=== PATIENT | female | born 1970 | race Two or more races ===

== ENCOUNTER 2019-01-06 00:12 | Inpatient (IN) | payer BC, MEDICAID ==
[~2019-01-06] VITALS: Ht 165.1 cm; Wt 69.4 kg
[2019-01-06] MEDS ORDERED: IV NS 0.9% 1,000 ML BAG IV ONE ×3 (00:30→03:00)
[2019-01-06 00:39] LABS: BASOPHILS # (AUTO) 0.1 /CMM (0.0-0.2); BASOPHILS % (AUTO) 0.4 % (0.0-2.0); HEMATOCRIT 41 % (33-45); HEMOGLOBIN 13.1 g/dL (11.5-14.8); LYMPHOCYTES # (AUTO) 0.6 /CMM (0.8-4.8); LYMPHOCYTES % (AUTO) 3.4 % (20.0-44.0); MEAN CORPUSCULAR HGB CONC 32 g/dl (31.0-36.0); MEAN CORPUSCULAR VOLUME 91 fL (82-100); MONOCYTES # (AUTO) 0.6 /CMM (0.1-1.30); MONOCYTES % (AUTO) 3.4 % (2.0-12.0); NEUTROPHILS # (AUTO) 15.4 /CMM (1.8-8.9); NEUTROPHILS % (AUTO) 92.8 % (43.0-81.0); PLATELET COUNT (AUTO) 152 /CMM (150-450); RED BLOOD CELL COUNT(AUTO) 4.45 MIL/uL (4.0-5.2); WHITE BLOOD COUNT (AUTO) 16.6 K/uL (4.3-11.0)
[2019-01-06 00:45] LABS: CALCIUM, SERUM 7.4 mg/dL (8.5-10.1); CARBON DIOXIDE 25 mmol/L (21-32); CHLORIDE 105 mmol/L (98-107); CREATININE 0.9 mg/dL (0.6-1.3); GLUCOSE 125 mg/dL (74-106); POTASSIUM 3.8 mmol/L (3.5-5.1); SODIUM SERUM 139 mmol/L (136-145); UREA NITROGEN, BLOOD 16 mg/dL (7-18)
[2019-01-06 00:51] LABS: ALANINE AMINOTRANSFERASE 49 U/L (12-78); ALBUMIN 3.2 g/dL (3.4-5.0); ALKALINE PHOSPHATASE 78 U/L (46-116); ASPARTATE AMINOTRANSFERASE 29 U/L (15-37); BILIRUBIN,DIRECT 0.1 mg/dL (0.0-0.2); BILIRUBIN,TOTAL 0.3 mg/dL (0.2-1.0); LIPASE 136 U/L (73-393); TOTAL PROTEIN, SERUM 6.8 g/dL (6.4-8.2)
[2019-01-06] MEDS ORDERED: FENTANYL PF 100MCG/2ML AMPUL IV ONE (03:00)
[2019-01-06] MEDS ORDERED: FENTANYL PF 100MCG/2ML AMPUL ONE (03:01)
[2019-01-06 03:52] LABS: APPEARANCE,URINE CLEAR (CLEAR); BILIRUBIN,URINE NEGATIVE (NEGATIVE); BLOOD, URINE 1+ Ery/uL (NEGATIVE); COLOR,URINE YELLOW (YELLOW); KETONES,URINE TRACE (NEGATIVE); LEUKOCYTE ESTERASE ,URINE NEGATIVE (NEGATIVE); NITRITE, URINE NEGATIVE (NEGATIVE); PROTEIN,URINE NEGATIVE (NEGATIVE); UGLUCOSE NEGATIVE (NEGATIVE); UROBILINOGEN,URINE 0.2 EU/dL (0.2)
[2019-01-06 04:02] LABS: BACTERIA,URINE Few /HPF (None Seen); SQUAMOUS EPITHELIAL CELL,UR Few /HPF (None Seen)
[2019-01-06 04:03] LABS: YEAST,URINE Few /HPF (None Seen)
[2019-01-06] MEDS ORDERED: CEFAZOLIN 1 GM in IV D5W 50 ML IV ONE (05:00)
[2019-01-06] MEDS ORDERED: VANCOMYCIN 1 GM in IV D5W 250 ML IV ONE (05:30)
[2019-01-06] MEDS ORDERED: PIPERACILLIN /TAZOBACTAM 3.375 G in IV D5W 50 ML IV ONE (05:30)
[2019-01-06] MEDS ORDERED: VANCOMYCIN 1 GM VIAL ONE (05:49)
[2019-01-06] MEDS ORDERED: Z GUARD REMEDY 2 OZ OINT TP PRN (06:00)
[2019-01-06] MEDS ORDERED: ZOLPIDEM TARTRATE 5 MG TABLET PO PRN (06:00)
[2019-01-06] MEDS ORDERED: ONDANSETRON HCL/PF 4 MG/2 ML VIAL IVP PRN (06:00)
[2019-01-06] MEDS ORDERED: MAG HYDROX/AL HYDROX/SIMETH 30 ML UDC PO PRN (06:00)
[2019-01-06] MEDS ORDERED: ACETAMINOPHEN 325 MG TABLET PO PRN (06:00)
[2019-01-06] MEDS ORDERED: MAGNESIUM HYDROXIDE 30 ML UDC PO PRN (06:00)
[2019-01-06] MEDS: MORPHINE SULFATE INJ 2 MG/ML DISP.SYRIN IV PRN ×2 (06:34→13:47)
[2019-01-06 06:42] VITALS: BP 116/65
[2019-01-06 08:00] VITALS: BP 110/66
[2019-01-06] MEDS: IV NS 0.9% 1,000 ML IV PRN ×2 (08:01→17:29)
[2019-01-06] MEDS: FLUCONAZOLE (100 MG) 100 MG TABLET PO SCH (08:11)
[2019-01-06] MEDS: CEFTRIAXONE 1 G in IV D5W 50 ML IV SCH (08:11)
[2019-01-06] MEDS: PANTOPRAZOLE 40 MG TABLET.DR PO SCH (08:11)
[2019-01-06] MEDS ORDERED: PANTOPRAZOLE 40 MG VIAL IV SCH (09:00)
[2019-01-06] MEDS: METRONIDAZOLE 500MG/ NS 100ML 500 MG in PREMIX 1 EA IV SCH ×3 (09:40→22:25)
[2019-01-06] MEDS: HYDROCODONE/APAP 5/325MG 1 EACH TABLET PO PRN ×2 (09:57→17:27)
[2019-01-06] MEDS ORDERED: FEE PK DOSING 1 MIN EA MC ONE (13:53)
[2019-01-06 16:00] VITALS: BP_SYST 110; BP_SYST 115; BP_DIAS 66; BP_DIAS 69
[2019-01-06] MEDS: VANCOMYCIN 1 GM in IV D5W 250 ML IV SCH (17:26)
[2019-01-06 20:00] VITALS: BP 105/68
[2019-01-07] VITALS: BP 96/52
[2019-01-07] MEDS: HYDROCODONE/APAP 5/325MG 1 EACH TABLET PO PRN ×2 (00:50→20:38)
[2019-01-07 04:00] VITALS: BP 96/60
[2019-01-07] MEDS: IV NS 0.9% 1,000 ML IV PRN ×2 (05:18→18:54)
[2019-01-07] MEDS: CEFTRIAXONE 1 G in IV D5W 50 ML IV SCH (05:30)
[2019-01-07] MEDS: METRONIDAZOLE 500MG/ NS 100ML 500 MG in PREMIX 1 EA IV SCH ×3 (06:04→21:45)
[2019-01-07] MEDS: VANCOMYCIN 1 GM in IV D5W 250 ML IV SCH (06:45)
[2019-01-07 07:11] LABS: BASOPHILS % (AUTO) 0.5 % (0.0-2.0); EOSINOPHILS % (AUTO) 4.1 % (0.0-6.0); HEMATOCRIT 32 % (33-45); HEMOGLOBIN 10.9 g/dL (11.5-14.8); LYMPHOCYTES # (AUTO) 1.3 /CMM (0.8-4.8); MEAN CORPUSCULAR HGB CONC 34 g/dl (31.0-36.0); MEAN CORPUSCULAR VOLUME 90 fL (82-100); MONOCYTES # (AUTO) 0.7 /CMM (0.1-1.30); MONOCYTES % (AUTO) 6.9 % (2.0-12.0); NEUTROPHILS # (AUTO) 7.5 /CMM (1.8-8.9); NEUTROPHILS % (AUTO) 75.5 % (43.0-81.0); PLATELET COUNT (AUTO) 114 /CMM (150-450); RED BLOOD CELL COUNT(AUTO) 3.55 MIL/uL (4.0-5.2); WHITE BLOOD COUNT (AUTO) 9.9 K/uL (4.3-11.0)
[2019-01-07 07:23] LABS: CALCIUM, SERUM 7.2 mg/dL (8.5-10.1); CREATININE 0.5 mg/dL (0.6-1.3); MAGNESIUM 1.7 mg/dL (1.8-2.4); PHOSPHORUS 2.2 mg/dL (2.5-4.9); THYROID STIMULATING HORMONE 2.125 uIU/mL (0.358-3.74)
[2019-01-07 07:33] LABS: POTASSIUM 2.8 mmol/L (3.5-5.1)
[2019-01-07 08:00] VITALS: BP 90/46
[2019-01-07] MEDS: FLUCONAZOLE (100 MG) 100 MG TABLET PO SCH (08:04)
[2019-01-07] MEDS: PANTOPRAZOLE 40 MG TABLET.DR PO SCH (08:04)
[2019-01-07] MEDS: Magnesium 1GM/D5W 100ML PREMIX 100 ML IV SCH ×2 (10:13→11:22)
[2019-01-07] MEDS: POTASSIUM CHLORIDE 20 MEQ TAB.PRT.SR PO SCH ×3 (10:13→12:00)
[2019-01-07] MEDS ORDERED: NEUTRA PHOS 1 POWD.PACKET PO ONE (11:00)
[2019-01-07] MEDS ORDERED: POTASSIUM CHLORIDE 20 MEQ TAB.PRT.SR PO ONE (13:00)
[2019-01-07 16:00] VITALS: BP 92/59
[2019-01-07] MEDS: VANCOMYCIN 1.25 GM in IV D5W 500 ML IV SCH (19:57)
[2019-01-07 20:00] VITALS: BP 91/57
[2019-01-08] VITALS (8 sets, daily range): BP systolic 85–98; BP diastolic 46–62
[2019-01-08] MEDS: IV NS 0.9% 1,000 ML IV PRN ×2 (04:23→18:46)
[2019-01-08] MEDS: CEFTRIAXONE 1 G in IV D5W 50 ML IV SCH (05:14)
[2019-01-08] MEDS: HYDROCODONE/APAP 5/325MG 1 EACH TABLET PO PRN ×2 (05:22→10:55)
[2019-01-08] MEDS: METRONIDAZOLE 500MG/ NS 100ML 500 MG in PREMIX 1 EA IV SCH ×3 (05:22→23:21)
[2019-01-08 07:23] LABS: CALCIUM, SERUM 7.3 mg/dL (8.5-10.1); CREATININE 0.5 mg/dL (0.6-1.3); PHOSPHORUS 2.6 mg/dL (2.5-4.9); POTASSIUM 3.4 mmol/L (3.5-5.1)
[2019-01-08] MEDS: VANCOMYCIN 1.25 GM in IV D5W 500 ML IV SCH (07:55)
[2019-01-08] MEDS: PANTOPRAZOLE 40 MG TABLET.DR PO SCH (07:55)
[2019-01-08] MEDS ORDERED: POTASSIUM CHLORIDE 20 MEQ TAB.PRT.SR PO SCH (11:30)
[2019-01-08] MEDS ORDERED: KETOROLAC TROMETHAMINE INJ 30 MG/ML VIAL IM PRN (11:30)
[2019-01-08] MEDS: ACETAMINOPHEN 325 MG TABLET PO SCH ×2 (12:42→18:47)
[2019-01-08] MEDS: KETOROLAC TROMETHAMINE INJ 30 MG/ML VIAL IV PRN (14:37)
[2019-01-09] MEDS: ACETAMINOPHEN 325 MG TABLET PO SCH ×4 (01:19→17:09)
[2019-01-09] MEDS: KETOROLAC TROMETHAMINE INJ 30 MG/ML VIAL IV PRN (05:13)
[2019-01-09] MEDS: CEFTRIAXONE 1 G in IV D5W 50 ML IV SCH (05:13)
[2019-01-09] MEDS: IV NS 0.9% 1,000 ML IV PRN (05:14)
[2019-01-09] MEDS: METRONIDAZOLE 500MG/ NS 100ML 500 MG in PREMIX 1 EA IV SCH ×2 (06:27→13:00)
[2019-01-09 08:00] VITALS: BP 89/48
[2019-01-09 08:02] LABS: CREATININE 0.6 mg/dL (0.6-1.3); POTASSIUM 3.5 mmol/L (3.5-5.1)
[2019-01-09] MEDS: PANTOPRAZOLE 40 MG TABLET.DR PO SCH (08:37)
[2019-01-09 16:00] VITALS: BP 92/41
== END 2019-01-09 19:00 | disposition home or self-care (01) | DRG 641 ==
LOC: ER 01:03 → TELE1 05:33 → MEDSG1 17:10
PROVIDERS: ADMIT Internal Medicine; ATTEND Internal Medicine
DX: E86.0 Dehydration (principal); R55 Syncope and collapse; R79.89 Other specified abnormal findings of blood chemistry; D72.829 Elevated white blood cell count, unspecified; Z98.890 Other specified postprocedural states
CPT/HCPCS: 36415; 70450-TC; 71045-TC; 72125-TC; 80048-TC; 80061-TC; 80076-TC; 80202-TC; 80305; 81000-TC; 82962-TC; 83690-TC; 83735-TC; 84100-TC; 84443-TC; 84484-TC; 84702-TC; 85025-TC; 85730-TC; 86850-TC; 87040-TC; 87081-TC; 93970-TC; A4216; A6253; A6402; G0378; J0690; J0696; J1885; J2270; J2405; J2543; J3010; J3370; J3475; J3490; J7030; J7060